=== PATIENT | female | born 1940 | race Caucasian/White ===

== ENCOUNTER 2019-08-20 15:07 | Inpatient (IN) ==
[2019-08-20] MEDS ORDERED: *HR* FentaNYL (PF) 100 MCG/2 ML VIAL IVP ONE (15:20)
[2019-08-20] MEDS ORDERED: cefTRIAXone 1,000 MG in Water for inj. (sterile) 10 ML IVP ONE (15:48)
[2019-08-20 16:00] LABS: Basophils % 0.2 %; Hemoglobin 11.6 g/dL (11.5-15.4); Mean Platelet Volume 10.6 fL (9.4-12.4); Red Cell Distribution Width 15.9 % (11.5-14.5)
[2019-08-20 16:04] LABS: Basophils # 0.1 K/mcL (0.0-0.2); Eosinophils # 0.1 K/mcL (0.0-0.6); Eosinophils % 0.4 %; Hematocrit 37.3 % (35.3-44.9); Lymphocytes # 0.6 K/mcL (0.6-4.6); Lymphocytes % 2.3 %; Mean Corpuscular HGB Conc 31.1 g/dL (31.6-35.5); Mean Corpuscular Hemoglobin 30.5 pg (28.0-33.3); Mean Corpuscular Volume 98.2 fL (83.0-100.0); Monocytes # 1.1 K/mcL (0.0-1.3); Platelet Count 217 K/mcL (140-400); Segmented Neutrophils % 92.1 %; White Blood Count 26.3 K/mcL (4.3-11.1)
[2019-08-20 16:06] LABS: Neutrophils # 24.2 K/mcL (1.6-8.9)
[2019-08-20 16:20] LABS: Albumin 3.6 g/dL (3.5-5.7); Albumin/Globulin Ratio 1.4 (1.1-2.2); Bilirubin,Direct 0.2 mg/dL (0.0-0.2); Bilirubin,Indirect 0.6 mg/dL (0.0-1.0); Bilirubin,Total 0.8 mg/dL (0.3-1.0); Calcium 9.2 mg/dL (8.6-10.3); Globulin 2.5 g/dL (2.4-3.5); Potassium 4.7 mEq/L (3.5-5.1); Total Protein 6.1 g/dL (6.4-8.9)
[2019-08-20 16:23] LABS: INR 2.3; Prothrombin Time 26.1 Seconds (9.4-12.1)
[2019-08-20 16:33] LABS: Platelet Estimate Normal (Normal)
[2019-08-20 16:43] LABS: Bacteria,Urine Moderate per hpf (None-Few); Bilirubin,Urine Negative (Negative); Blood,Urine Small (Negative); Clarity,Urine Turbid (Clear); Color,Urine Yellow (Yellow); Glucose,Urine (UA) Normal (Normal); Hyaline Casts,Urine Few per lpf (None Seen); Ketones,Urine Negative (Negative); Leukocyte Esterase,Urine Large (Negative); Mucus,Urine Few per lpf (None-Few); Nitrite,Urine Negative (Negative); Protein,Urine 30 mg/dL (Neg-Trace); RBC,Urine 0-3 per hpf (0-3); Specific Gravity,Urine 1.018 (1.010-1.025); Squamous Epithelial Cell,Urine Few per hpf (None-Few); Urobilinogen,Urine Normal (Normal); WBC,Urine 50-100 per hpf (0-3)
[2019-08-20] MEDS ORDERED: Naloxone 0.4 MG/ML INJ IVP PRN (17:44)
[2019-08-20] MEDS ORDERED: Ondansetron 4 MG/2 ML VIAL IVP PRN (17:44)
[2019-08-20] MEDS ORDERED: *HR* Dextrose 50 % in Water (Vial) 50 ML VIAL IVP PRN (17:46)
[2019-08-20] MEDS ORDERED: D5% in Water 1,000 ML IVC PRN (17:46)
[2019-08-20] MEDS ORDERED: Dextrose Gel 15 GM/37.5 ML TUBE PO PRN ×2 (17:46)
[2019-08-20] MEDS: Budesonide/Formoterol 80/4.5 1 PUFF INH IH SCH (19:49)
[2019-08-20] MEDS: Cefepime HCl 2,000 MG in 0.9 % Sodium Chloride Mini Bag 100 ML IVPB SCH (20:24)
[2019-08-20] MEDS: 0.9 % Sodium Chloride 1,000 ML IVC SCH ×3 (20:24→23:16)
[2019-08-20] MEDS: Famotidine 20 MG TABLET PO SCH (20:25)
[2019-08-20] MEDS: *HR* HYDROcodone/Acet 5/325 mg TABLET PO PRN (23:16)
[2019-08-20] MEDS: Insulin DETEMIR 100 UNIT/ML X5UNITS SQ SCH (23:16)
[2019-08-21] MEDS: 0.9 % Sodium Chloride 1,000 ML IVC SCH ×4 (00:55→11:52)
[2019-08-21 04:17] LABS: Hematocrit 32.7 % (35.3-44.9); Hemoglobin 10.1 g/dL (11.5-15.4); Mean Corpuscular HGB Conc 30.9 g/dL (31.6-35.5); Mean Corpuscular Hemoglobin 29.8 pg (28.0-33.3); Mean Corpuscular Volume 96.5 fL (83.0-100.0); Mean Platelet Volume 10.5 fL (9.4-12.4); Platelet Count 174 K/mcL (140-400); Red Blood Count 3.39 M/mcL (3.82-4.97); Red Cell Distribution Width 15.9 % (11.5-14.5); White Blood Count 18.5 K/mcL (4.3-11.1)
[2019-08-21 04:20] LABS: INR 2.5
[2019-08-21 04:36] LABS: Potassium 4.4 mEq/L (3.5-5.1)
[2019-08-21 05:19] LABS: Lymphocytes # 1.5 K/mcL (0.6-4.6); Monocytes # 0.4 K/mcL (0.0-1.3); Neutrophils # 16.7 K/mcL (1.6-8.9); Platelet Estimate Normal (Normal)
[2019-08-21] MEDS: Budesonide/Formoterol 80/4.5 1 PUFF INH IH SCH ×2 (07:14→21:45)
[2019-08-21] MEDS: Cefepime HCl 2,000 MG in 0.9 % Sodium Chloride Mini Bag 100 ML IVPB SCH ×2 (08:53→22:15)
[2019-08-21] MEDS: Famotidine 20 MG TABLET PO SCH ×2 (08:54→22:13)
[2019-08-21] MEDS: Cholecalciferol (D-3) 1,000 UNIT (25MCG) TABLET PO SCH (08:55)
[2019-08-21] MEDS: DilTIAZem CD (24hr) 240 MG CAP.ER.24H PO SCH (08:55)
[2019-08-21] MEDS ORDERED: cefTRIAXone 1,000 MG in Water for inj. (sterile) 10 ML IVP SCH (09:00)
[2019-08-21] MEDS ORDERED: Furosemide 20 MG/2 ML VIAL IVP ONE (11:57)
[2019-08-21] MEDS: Insulin LISPRO 300 UNITS/3 ML VIAL SQ SCH ×3 (12:49→21:48)
[2019-08-21] MEDS: Vancomycin 1,750 MG/517.5 ML IV.SOLN IVPB SCH (13:54)
[2019-08-21] MEDS ORDERED: Perflutren Lipid Microsphere 1.3 ML in 0.9 % Sodium Chloride 8.7 ML IVP PRN (15:45)
[2019-08-21] MEDS: *HR* HYDROcodone/Acet 5/325 mg TABLET PO PRN (22:14)
[2019-08-21] MEDS: Insulin DETEMIR 100 UNIT/ML X5UNITS SQ SCH (22:15)
[2019-08-21] MEDS: *HR* Heparin 5,000 UNIT/ML VIAL SQ SCH (22:15)
[2019-08-21] MEDS: *HR* Metoprolol 5 MG/5 ML VIAL IVP PRN (22:26)
[2019-08-22 04:17] LABS: Basophils # 0.1 K/mcL (0.0-0.2); Basophils % 0.3 %; Eosinophils # 0.2 K/mcL (0.0-0.6); Eosinophils % 1.2 %; Hematocrit 33.4 % (35.3-44.9); Hemoglobin 10.1 g/dL (11.5-15.4); Lymphocytes # 1.4 K/mcL (0.6-4.6); Lymphocytes % 8.5 %; Mean Corpuscular HGB Conc 30.2 g/dL (31.6-35.5); Mean Corpuscular Hemoglobin 30.1 pg (28.0-33.3); Mean Corpuscular Volume 99.7 fL (83.0-100.0); Mean Platelet Volume 11.2 fL (9.4-12.4); Monocytes % 5.9 %; Neutrophils # 13.9 K/mcL (1.6-8.9); Platelet Count 165 K/mcL (140-400); Red Blood Count 3.35 M/mcL (3.82-4.97); Red Cell Distribution Width 15.9 % (11.5-14.5); Segmented Neutrophils % 83.1 %; White Blood Count 16.7 K/mcL (4.3-11.1)
[2019-08-22 04:33] LABS: Calcium 7.8 mg/dL (8.6-10.3); Magnesium 1.5 mg/dL (1.6-2.6); Phosphorous 2.8 mg/dL (2.7-4.5); Potassium 4.4 mEq/L (3.5-5.1)
[2019-08-22] MEDS: *HR* HYDROcodone/Acet 5/325 mg TABLET PO PRN (05:10)
[2019-08-22] MEDS: *HR* Heparin 5,000 UNIT/ML VIAL SQ SCH ×3 (05:10→22:04)
[2019-08-22] MEDS: Budesonide/Formoterol 80/4.5 1 PUFF INH IH SCH ×2 (07:43→22:22)
[2019-08-22 08:44] LABS: Creatine Kinase 605 Units/L (30-223)
[2019-08-22] MEDS: Insulin LISPRO 300 UNITS/3 ML VIAL SQ SCH ×4 (08:55→21:48)
[2019-08-22] MEDS: Famotidine 20 MG TABLET PO SCH ×2 (09:05→22:03)
[2019-08-22] MEDS: Cefepime HCl 2,000 MG in 0.9 % Sodium Chloride Mini Bag 100 ML IVPB SCH ×2 (09:06→22:04)
[2019-08-22] MEDS: DilTIAZem CD (24hr) 240 MG CAP.ER.24H PO SCH (09:06)
[2019-08-22] MEDS: Cholecalciferol (D-3) 1,000 UNIT (25MCG) TABLET PO SCH (09:06)
[2019-08-22 10:34] LABS: C-Reactive Protein 279 mg/L (Less than 10)
[2019-08-22] MEDS: *HR* Metoprolol 5 MG/5 ML VIAL IVP PRN (11:08)
[2019-08-22] MEDS: Vancomycin 1,750 MG/517.5 ML IV.SOLN IVPB SCH (12:30)
[2019-08-22 15:01] LABS: INR 1.8; Prothrombin Time 20.5 Seconds (9.4-12.1)
[2019-08-22] MEDS: Insulin DETEMIR 100 UNIT/ML X5UNITS SQ SCH (22:04)
[2019-08-23 03:57] LABS: Basophils # 0.1 K/mcL (0.0-0.2); Basophils % 0.6 %; Eosinophils # 0.4 K/mcL (0.0-0.6); Eosinophils % 2.8 %; Hematocrit 38.8 % (35.3-44.9); Immature Granulocytes % 0.7 % (0-4); Lymphocytes # 1.3 K/mcL (0.6-4.6); Lymphocytes % 9.6 %; Mean Corpuscular HGB Conc 28.4 g/dL (31.6-35.5); Mean Corpuscular Hemoglobin 29.3 pg (28.0-33.3); Mean Corpuscular Volume 103.2 fL (83.0-100.0); Mean Platelet Volume 11.3 fL (9.4-12.4); Monocytes # 1.2 K/mcL (0.0-1.3); Monocytes % 8.9 %; Neutrophils # 10.5 K/mcL (1.6-8.9); Platelet Count 143 K/mcL (140-400); Red Blood Count 3.76 M/mcL (3.82-4.97); Red Cell Distribution Width 15.9 % (11.5-14.5); Segmented Neutrophils % 77.4 %; White Blood Count 13.5 K/mcL (4.3-11.1)
[2019-08-23 04:04] LABS: BUN/Creatinine Ratio 35 (6-26); Blood Urea Nitrogen 31 mg/dL (8-23); Carbon Dioxide 12 mEq/L (23-29); Chloride 110 mEq/L (98-107); Glucose 89 mg/dL (70-105); Osmolality,Calculated 282 (280-300); Phosphorous 2.7 mg/dL (2.7-4.5); Potassium 5.2 mEq/L (3.5-5.1); Sodium 133 mEq/L (136-145); eGFR For African Americans > 60 (> 60); eGFR For Non-African Americans > 60 (> 60)
[2019-08-23 04:25] LABS: Platelet Estimate Normal (Normal)
[2019-08-23] MEDS: *HR* Heparin 5,000 UNIT/ML VIAL SQ SCH ×3 (05:47→20:38)
[2019-08-23] MEDS: Budesonide/Formoterol 80/4.5 1 PUFF INH IH SCH ×2 (07:39→20:21)
[2019-08-23] MEDS: Insulin LISPRO 300 UNITS/3 ML VIAL SQ SCH ×4 (07:58→20:29)
[2019-08-23] MEDS: DilTIAZem CD (24hr) 240 MG CAP.ER.24H PO SCH (08:11)
[2019-08-23] MEDS: Famotidine 20 MG TABLET PO SCH ×2 (08:11→20:38)
[2019-08-23] MEDS: Cholecalciferol (D-3) 1,000 UNIT (25MCG) TABLET PO SCH (08:11)
[2019-08-23] MEDS: Cefepime HCl 2,000 MG in 0.9 % Sodium Chloride Mini Bag 100 ML IVPB SCH (08:12)
[2019-08-23] MEDS: 0.9 % Sodium Chloride 1,000 ML IVC SCH ×2 (09:02→20:39)
[2019-08-23] MEDS: Vancomycin 1,750 MG/517.5 ML IV.SOLN IVPB SCH (12:17)
[2019-08-23] MEDS: Ertapenem 1,000 MG in 0.9 % Sodium Chloride Mini Bag 100 ML IVPB SCH (18:08)
[2019-08-23 20:25] LABS: Glucose,Synovial Fluid 113 mg/dL (No Ref Range); LDH,Synovial Fluid 993 Units/L (No Ref Range)
[2019-08-23] MEDS: *HR* Metoprolol 5 MG/5 ML VIAL IVP PRN (20:38)
[2019-08-23] MEDS: Nystatin POWDER 30 GM BOTTLE TP SCH (20:39)
[2019-08-23] MEDS: Insulin DETEMIR 100 UNIT/ML X5UNITS SQ SCH (20:42)
[2019-08-24] MEDS: *HR* Heparin 5,000 UNIT/ML VIAL SQ SCH ×3 (05:39→20:37)
[2019-08-24] MEDS: Budesonide/Formoterol 80/4.5 1 PUFF INH IH SCH ×2 (07:47→20:22)
[2019-08-24] MEDS: Cholecalciferol (D-3) 1,000 UNIT (25MCG) TABLET PO SCH (07:54)
[2019-08-24] MEDS: DilTIAZem CD (24hr) 240 MG CAP.ER.24H PO SCH (08:03)
[2019-08-24] MEDS: Famotidine 20 MG TABLET PO SCH ×2 (08:03→20:35)
[2019-08-24] MEDS: Nystatin POWDER 30 GM BOTTLE TP SCH ×3 (08:16→20:36)
[2019-08-24] MEDS: Insulin LISPRO 300 UNITS/3 ML VIAL SQ SCH ×4 (08:16→20:25)
[2019-08-24] MEDS: *HR* HYDROcodone/Acet 5/325 mg TABLET PO PRN ×2 (09:13→18:39)
[2019-08-24 10:38] LABS: BUN/Creatinine Ratio 30 (6-26); Blood Urea Nitrogen 21 mg/dL (8-23); Calcium 7.8 mg/dL (8.6-10.3); Carbon Dioxide 19 mEq/L (23-29); Chloride 109 mEq/L (98-107); Glucose 179 mg/dL (70-105); Magnesium 1.6 mg/dL (1.6-2.6); Osmolality,Calculated 287 (280-300); Phosphorous 2.3 mg/dL (2.7-4.5); Potassium 3.5 mEq/L (3.5-5.1); Sodium 135 mEq/L (136-145); eGFR For African Americans > 60 (> 60); eGFR For Non-African Americans > 60 (> 60)
[2019-08-24] MEDS ORDERED: Furosemide 20 MG/2 ML VIAL IVP ONE (11:06)
[2019-08-24] MEDS: Vancomycin 1,750 MG/517.5 ML IV.SOLN IVPB SCH (11:30)
[2019-08-24 14:24] LABS: Basophils % 0.7 %; Nucleated Red Blood Cells 0.1 /100 WBC (0)
[2019-08-24 14:26] LABS: Basophils # 0.1 K/mcL (0.0-0.2); Eosinophils # 0.3 K/mcL (0.0-0.6); Eosinophils % 1.7 %; Hematocrit 34.3 % (35.3-44.9); Hemoglobin 10.8 g/dL (11.5-15.4); Immature Granulocytes % 4.1 % (0-4); Immature Platelets 4.3 % (1.1-6.1); Lymphocytes # 1.6 K/mcL (0.6-4.6); Lymphocytes % 9.2 %; Mean Corpuscular HGB Conc 31.5 g/dL (31.6-35.5); Mean Corpuscular Hemoglobin 29.3 pg (28.0-33.3); Mean Platelet Volume 11.4 fL (9.4-12.4); Monocytes # 1.8 K/mcL (0.0-1.3); Monocytes % 10.2 %; Neutrophils # 12.9 K/mcL (1.6-8.9); Platelet Count 173 K/mcL (140-400); Red Blood Count 3.69 M/mcL (3.82-4.97); Red Cell Distribution Width 15.5 % (11.5-14.5); Segmented Neutrophils % 74.1 %; White Blood Count 17.4 K/mcL (4.3-11.1)
[2019-08-24 14:31] LABS: Platelet Estimate Normal (Normal)
[2019-08-24] MEDS ORDERED: Colchicine 0.6 MG TABLET PO ONE (15:32)
[2019-08-24] MEDS: Ertapenem 1,000 MG in 0.9 % Sodium Chloride Mini Bag 100 ML IVPB SCH (15:57)
[2019-08-24] MEDS: Metoprolol XL (24 HR) Succ 25 MG TAB.ER.24H PO SCH ×2 (15:59→20:37)
[2019-08-24] MEDS: Colchicine 0.6 MG TABLET PO SCH (20:34)
[2019-08-24] MEDS: Insulin DETEMIR 100 UNIT/ML X5UNITS SQ SCH (20:35)
[2019-08-25 03:56] LABS: Hematocrit 33.1 % (35.3-44.9); Hemoglobin 10.3 g/dL (11.5-15.4); Mean Corpuscular HGB Conc 31.1 g/dL (31.6-35.5); Mean Corpuscular Hemoglobin 29.3 pg (28.0-33.3); Mean Corpuscular Volume 94.3 fL (83.0-100.0); Mean Platelet Volume 10.6 fL (9.4-12.4); Nucleated Red Blood Cells 0.1 /100 WBC (0); Platelet Count 240 K/mcL (140-400); Red Blood Count 3.51 M/mcL (3.82-4.97); Red Cell Distribution Width 15.7 % (11.5-14.5); White Blood Count 17.8 K/mcL (4.3-11.1)
[2019-08-25 04:17] LABS: BUN/Creatinine Ratio 28 (6-26); Blood Urea Nitrogen 19 mg/dL (8-23); Calcium 8.2 mg/dL (8.6-10.3); Carbon Dioxide 22 mEq/L (23-29); Chloride 105 mEq/L (98-107); Glucose 130 mg/dL (70-105); Magnesium 1.5 mg/dL (1.6-2.6); Osmolality,Calculated 284 (280-300); Potassium 3.5 mEq/L (3.5-5.1); Sodium 135 mEq/L (136-145); eGFR For African Americans > 60 (> 60); eGFR For Non-African Americans > 60 (> 60)
[2019-08-25 05:02] LABS: Basophils # 0.4 K/mcL (0.0-0.2); Eosinophils # 0.7 K/mcL (0.0-0.6); Lymphocytes # 1.8 K/mcL (0.6-4.6); Monocytes # 2.1 K/mcL (0.0-1.3); Neutrophils # 12.8 K/mcL (1.6-8.9)
[2019-08-25 05:03] LABS: Platelet Estimate Normal (Normal); Smudge Cells Present (Not Present)
[2019-08-25] MEDS: *HR* Heparin 5,000 UNIT/ML VIAL SQ SCH ×3 (05:18→20:45)
[2019-08-25] MEDS: *HR* HYDROcodone/Acet 5/325 mg TABLET PO PRN ×2 (05:23→18:36)
[2019-08-25] MEDS: Colchicine 0.6 MG TABLET PO SCH ×2 (08:50→20:45)
[2019-08-25] MEDS: Cholecalciferol (D-3) 1,000 UNIT (25MCG) TABLET PO SCH (08:50)
[2019-08-25] MEDS: DilTIAZem CD (24hr) 240 MG CAP.ER.24H PO SCH (08:50)
[2019-08-25] MEDS: Metoprolol XL (24 HR) Succ 25 MG TAB.ER.24H PO SCH ×2 (08:50→20:45)
[2019-08-25] MEDS: Nystatin POWDER 30 GM BOTTLE TP SCH ×3 (08:51→20:45)
[2019-08-25] MEDS: Famotidine 20 MG TABLET PO SCH ×2 (08:51→20:45)
[2019-08-25] MEDS: Insulin LISPRO 300 UNITS/3 ML VIAL SQ SCH ×4 (08:54→20:41)
[2019-08-25] MEDS: Furosemide 20 MG/2 ML VIAL IVP SCH ×2 (09:49→20:45)
[2019-08-25] MEDS: Budesonide/Formoterol 80/4.5 1 PUFF INH IH SCH ×2 (10:32→20:14)
[2019-08-25] MEDS: Vancomycin 1,750 MG/517.5 ML IV.SOLN IVPB SCH (12:32)
[2019-08-25] MEDS: Ertapenem 1,000 MG in 0.9 % Sodium Chloride Mini Bag 100 ML IVPB SCH (16:28)
[2019-08-25] MEDS: Insulin DETEMIR 100 UNIT/ML X5UNITS SQ SCH (20:45)
[2019-08-26 01:13] LABS: Hematocrit 34.3 % (35.3-44.9); Hemoglobin 10.8 g/dL (11.5-15.4); Mean Corpuscular HGB Conc 31.5 g/dL (31.6-35.5); Mean Corpuscular Volume 95.3 fL (83.0-100.0); Mean Platelet Volume 10.2 fL (9.4-12.4); Nucleated Red Blood Cells 0.2 /100 WBC (0); Platelet Count 280 K/mcL (140-400); Red Cell Distribution Width 15.5 % (11.5-14.5); White Blood Count 17.2 K/mcL (4.3-11.1)
[2019-08-26 01:34] LABS: BUN/Creatinine Ratio 38 (6-26); Blood Urea Nitrogen 29 mg/dL (8-23); Calcium 8.4 mg/dL (8.6-10.3); Carbon Dioxide 26 mEq/L (23-29); Chloride 102 mEq/L (98-107); Glucose 145 mg/dL (70-105); Magnesium 1.5 mg/dL (1.6-2.6); Osmolality,Calculated 290 (280-300); Phosphorous 2.3 mg/dL (2.7-4.5); Potassium 3.8 mEq/L (3.5-5.1); Sodium 136 mEq/L (136-145); eGFR For African Americans > 60 (> 60); eGFR For Non-African Americans > 60 (> 60)
[2019-08-26 01:52] LABS: Basophils # 0.3 K/mcL (0.0-0.2); Eosinophils # 0.3 K/mcL (0.0-0.6); Lymphocytes # 5.9 K/mcL (0.6-4.6); Monocytes # 0.7 K/mcL (0.0-1.3); Neutrophils # 9.6 K/mcL (1.6-8.9); Platelet Estimate Normal (Normal)
[2019-08-26] MEDS: *HR* HYDROcodone/Acet 5/325 mg TABLET PO PRN ×2 (03:56→11:35)
[2019-08-26] MEDS: *HR* Heparin 5,000 UNIT/ML VIAL SQ SCH ×3 (05:39→22:02)
[2019-08-26] MEDS: Budesonide/Formoterol 80/4.5 1 PUFF INH IH SCH ×2 (07:40→19:55)
[2019-08-26] MEDS: Colchicine 0.6 MG TABLET PO SCH ×2 (08:10→22:03)
[2019-08-26] MEDS: Furosemide 20 MG/2 ML VIAL IVP SCH ×2 (08:10→22:24)
[2019-08-26] MEDS: Insulin LISPRO 300 UNITS/3 ML VIAL SQ SCH ×4 (08:10→22:03)
[2019-08-26] MEDS: Famotidine 20 MG TABLET PO SCH ×2 (08:10→22:24)
[2019-08-26] MEDS: DilTIAZem CD (24hr) 240 MG CAP.ER.24H PO SCH (08:11)
[2019-08-26] MEDS: Metoprolol XL (24 HR) Succ 25 MG TAB.ER.24H PO SCH ×2 (08:11→22:24)
[2019-08-26] MEDS: Nystatin POWDER 30 GM BOTTLE TP SCH ×2 (08:11→15:05)
[2019-08-26] MEDS: Cholecalciferol (D-3) 1,000 UNIT (25MCG) TABLET PO SCH (08:12)
[2019-08-26] MEDS: Vancomycin 1,750 MG/517.5 ML IV.SOLN IVPB SCH (11:35)
[2019-08-26] MEDS ORDERED: Magnesium Sulfate 1 GM/102 ML PIGGYBACK IVPB ONE (15:07)
[2019-08-26] MEDS: Ertapenem 1,000 MG in 0.9 % Sodium Chloride Mini Bag 100 ML IVPB SCH (16:27)
[2019-08-26] MEDS: Insulin DETEMIR 100 UNIT/ML X5UNITS SQ SCH (22:03)
[2019-08-26] MEDS: *HR* Metoprolol 5 MG/5 ML VIAL IVP PRN (22:24)
[2019-08-27 04:36] LABS: Hematocrit 36.4 % (35.3-44.9); Hemoglobin 11.2 g/dL (11.5-15.4); Mean Corpuscular HGB Conc 30.8 g/dL (31.6-35.5); Mean Corpuscular Hemoglobin 29.4 pg (28.0-33.3); Mean Corpuscular Volume 95.5 fL (83.0-100.0); Mean Platelet Volume 10.1 fL (9.4-12.4); Nucleated Red Blood Cells 0.1 /100 WBC (0); Platelet Count 351 K/mcL (140-400); Red Blood Count 3.81 M/mcL (3.82-4.97); White Blood Count 16.3 K/mcL (4.3-11.1)
[2019-08-27 04:56] LABS: BUN/Creatinine Ratio 40 (6-26); Blood Urea Nitrogen 33 mg/dL (8-23); Calcium 8.3 mg/dL (8.6-10.3); Carbon Dioxide 30 mEq/L (23-29); Chloride 99 mEq/L (98-107); Glucose 122 mg/dL (70-105); Magnesium 1.7 mg/dL (1.6-2.6); Osmolality,Calculated 289 (280-300); Phosphorous 3.5 mg/dL (2.7-4.5); Sodium 135 mEq/L (136-145); eGFR For African Americans > 60 (> 60); eGFR For Non-African Americans > 60 (> 60)
[2019-08-27 05:03] LABS: Eosinophils # 0.3 K/mcL (0.0-0.6); Lymphocytes # 1.6 K/mcL (0.6-4.6); Monocytes # 0.7 K/mcL (0.0-1.3); Neutrophils # 12.7 K/mcL (1.6-8.9)
[2019-08-27] MEDS: Nystatin POWDER 30 GM BOTTLE TP SCH ×4 (05:03→22:31)
[2019-08-27] MEDS: *HR* Heparin 5,000 UNIT/ML VIAL SQ SCH ×3 (05:03→22:30)
[2019-08-27] MEDS: *HR* HYDROcodone/Acet 5/325 mg TABLET PO PRN ×3 (05:03→22:27)
[2019-08-27 05:04] LABS: Platelet Estimate Normal (Normal); Smudge Cells Present (Not Present)
[2019-08-27] MEDS: Budesonide/Formoterol 80/4.5 1 PUFF INH IH SCH ×2 (07:43→20:32)
[2019-08-27] MEDS: Insulin LISPRO 300 UNITS/3 ML VIAL SQ SCH ×3 (08:46→17:24)
[2019-08-27] MEDS: Metoprolol XL (24 HR) Succ 25 MG TAB.ER.24H PO SCH ×2 (08:59→22:30)
[2019-08-27] MEDS: DilTIAZem CD (24hr) 240 MG CAP.ER.24H PO SCH (08:59)
[2019-08-27] MEDS: Colchicine 0.6 MG TABLET PO SCH ×2 (08:59→22:31)
[2019-08-27] MEDS: Furosemide 20 MG/2 ML VIAL IVP SCH ×2 (08:59→22:31)
[2019-08-27] MEDS: Famotidine 20 MG TABLET PO SCH ×2 (08:59→22:31)
[2019-08-27] MEDS: Cholecalciferol (D-3) 1,000 UNIT (25MCG) TABLET PO SCH (08:59)
[2019-08-27] MEDS: *HR* Metoprolol 5 MG/5 ML VIAL IVP PRN (11:28)
[2019-08-27] MEDS: Vancomycin 1,750 MG/517.5 ML IV.SOLN IVPB SCH (11:32)
[2019-08-27] MEDS ORDERED: Aminoglycoside Consult 1 EACH MC ONE (13:52)
[2019-08-27] MEDS: Ertapenem 1,000 MG in 0.9 % Sodium Chloride Mini Bag 100 ML IVPB SCH (17:24)
[2019-08-27] MEDS: Insulin DETEMIR 100 UNIT/ML X5UNITS SQ SCH (22:30)
[2019-08-27] MEDS: Doxycycline 100 MG CAPSULE PO SCH (22:31)
[2019-08-28] MEDS: Insulin LISPRO 300 UNITS/3 ML VIAL SQ SCH ×5 (02:39→20:58)
[2019-08-28] MEDS: *HR* Metoprolol 5 MG/5 ML VIAL IVP PRN ×3 (02:47→17:29)
[2019-08-28] MEDS ORDERED: 0.9 % Sodium Chloride 250 ML IVC ONE (04:01)
[2019-08-28 04:53] LABS: BUN/Creatinine Ratio 46 (6-26); Blood Urea Nitrogen 38 mg/dL (8-23); Calcium 8.8 mg/dL (8.6-10.3); Carbon Dioxide 25 mEq/L (23-29); Chloride 100 mEq/L (98-107); Glucose 118 mg/dL (70-105); Magnesium 1.6 mg/dL (1.6-2.6); Osmolality,Calculated 292 (280-300); Potassium 4.2 mEq/L (3.5-5.1); Sodium 136 mEq/L (136-145); eGFR For African Americans > 60 (> 60); eGFR For Non-African Americans > 60 (> 60)
[2019-08-28] MEDS: *HR* Heparin 5,000 UNIT/ML VIAL SQ SCH ×3 (05:18→21:05)
[2019-08-28] MEDS: Budesonide/Formoterol 80/4.5 1 PUFF INH IH SCH ×2 (08:01→22:20)
[2019-08-28] MEDS: Doxycycline 100 MG CAPSULE PO SCH ×2 (08:08→21:04)
[2019-08-28] MEDS: Metoprolol XL (24 HR) Succ 25 MG TAB.ER.24H PO SCH ×3 (08:08→21:04)
[2019-08-28] MEDS: DilTIAZem CD (24hr) 240 MG CAP.ER.24H PO SCH (08:08)
[2019-08-28] MEDS: Colchicine 0.6 MG TABLET PO SCH ×2 (08:08→21:04)
[2019-08-28] MEDS: Cholecalciferol (D-3) 1,000 UNIT (25MCG) TABLET PO SCH (08:08)
[2019-08-28] MEDS: Famotidine 20 MG TABLET PO SCH ×2 (08:08→21:05)
[2019-08-28] MEDS: Furosemide 20 MG/2 ML VIAL IVP SCH ×2 (08:08→21:04)
[2019-08-28] MEDS: Nystatin POWDER 30 GM BOTTLE TP SCH ×3 (08:09→21:03)
[2019-08-28] MEDS: *HR* HYDROcodone/Acet 5/325 mg TABLET PO PRN (08:22)
[2019-08-28] MEDS ORDERED: Isovue-370 500 ML BOTTLE IVP ONE (12:20)
[2019-08-28] MEDS ORDERED: *HR* Metoprolol 5 MG/5 ML VIAL IVP ONE (12:42)
[2019-08-28] MEDS ORDERED: Magnesium Sulfate 1 GM/102 ML PIGGYBACK IVPB ONE (13:54)
[2019-08-28 14:10] LABS: Uric Acid 7.6 mg/dL (2.3-7.6)
[2019-08-28] MEDS: Ertapenem 1,000 MG in 0.9 % Sodium Chloride Mini Bag 100 ML IVPB SCH (17:04)
[2019-08-28] MEDS: Insulin DETEMIR 100 UNIT/ML X5UNITS SQ SCH (21:04)
[2019-08-29] MEDS: *HR* Metoprolol 5 MG/5 ML VIAL IVP PRN (02:52)
[2019-08-29 03:13] LABS: Basophils # 0.1 K/mcL (0.0-0.2); Basophils % 0.8 %; Eosinophils # 0.3 K/mcL (0.0-0.6); Eosinophils % 1.8 %; Hematocrit 35.5 % (35.3-44.9); Hemoglobin 11.2 g/dL (11.5-15.4); Immature Granulocytes % 3.2 % (0-4); Lymphocytes # 2.6 K/mcL (0.6-4.6); Lymphocytes % 14.7 %; Mean Corpuscular HGB Conc 31.5 g/dL (31.6-35.5); Mean Corpuscular Hemoglobin 29.6 pg (28.0-33.3); Mean Corpuscular Volume 93.9 fL (83.0-100.0); Monocytes # 1.6 K/mcL (0.0-1.3); Monocytes % 9.1 %; Neutrophils # 12.2 K/mcL (1.6-8.9); Nucleated Red Blood Cells 0.1 /100 WBC (0); Platelet Count 391 K/mcL (140-400); Red Blood Count 3.78 M/mcL (3.82-4.97); Red Cell Distribution Width 15.9 % (11.5-14.5); Segmented Neutrophils % 70.4 %; White Blood Count 17.3 K/mcL (4.3-11.1)
[2019-08-29 03:32] LABS: BUN/Creatinine Ratio 46 (6-26); Blood Urea Nitrogen 38 mg/dL (8-23); C-Reactive Protein 139 mg/L (Less than 10); Calcium 8.7 mg/dL (8.6-10.3); Carbon Dioxide 27 mEq/L (23-29); Chloride 97 mEq/L (98-107); Glucose 89 mg/dL (70-105); Osmolality,Calculated 289 (280-300); Potassium 4.1 mEq/L (3.5-5.1); Sodium 135 mEq/L (136-145); eGFR For African Americans > 60 (> 60); eGFR For Non-African Americans > 60 (> 60)
[2019-08-29] MEDS: *HR* Heparin 5,000 UNIT/ML VIAL SQ SCH ×3 (05:55→21:06)
[2019-08-29] MEDS: Insulin LISPRO 300 UNITS/3 ML VIAL SQ SCH ×4 (08:47→21:08)
[2019-08-29] MEDS: Metoprolol XL (24 HR) Succ 25 MG TAB.ER.24H PO SCH ×3 (08:54→21:08)
[2019-08-29] MEDS: Doxycycline 100 MG CAPSULE PO SCH ×2 (08:54→21:07)
[2019-08-29] MEDS: Cholecalciferol (D-3) 1,000 UNIT (25MCG) TABLET PO SCH (08:55)
[2019-08-29] MEDS: DilTIAZem 50 MG/50 ML IV.SOLN IVC SCH ×5 (08:55→22:27)
[2019-08-29] MEDS: Famotidine 20 MG TABLET PO SCH ×2 (08:55→21:07)
[2019-08-29] MEDS: Colchicine 0.6 MG TABLET PO SCH ×2 (08:56→21:07)
[2019-08-29] MEDS: Nystatin POWDER 30 GM BOTTLE TP SCH ×3 (08:56→21:06)
[2019-08-29] MEDS: Furosemide 20 MG/2 ML VIAL IVP SCH (08:59)
[2019-08-29] MEDS: Budesonide/Formoterol 80/4.5 1 PUFF INH IH SCH ×2 (09:16→22:11)
[2019-08-29] MEDS ORDERED: 0.9 % Sodium Chloride 250 ML ONE (09:24)
[2019-08-29] MEDS: Ertapenem 1,000 MG in 0.9 % Sodium Chloride Mini Bag 100 ML IVPB SCH (16:19)
[2019-08-29] MEDS: Acetaminophen 325 MG TABLET PO PRN (21:06)
[2019-08-29] MEDS: Insulin DETEMIR 100 UNIT/ML X5UNITS SQ SCH (21:10)
[2019-08-30] MEDS: DilTIAZem 50 MG/50 ML IV.SOLN IVC SCH (01:54)
[2019-08-30] MEDS: *HR* Metoprolol 5 MG/5 ML VIAL IVP PRN (03:21)
[2019-08-30] MEDS: *HR* Heparin 5,000 UNIT/ML VIAL SQ SCH ×3 (05:09→20:05)
[2019-08-30 05:17] LABS: Basophils # 0.2 K/mcL (0.0-0.2); Basophils % 0.8 %; Eosinophils # 0.3 K/mcL (0.0-0.6); Eosinophils % 1.6 %; Hematocrit 38.8 % (35.3-44.9); Immature Granulocytes % 1.7 % (0-4); Lymphocytes # 2.7 K/mcL (0.6-4.6); Lymphocytes % 14.4 %; Mean Corpuscular HGB Conc 30.9 g/dL (31.6-35.5); Mean Corpuscular Hemoglobin 29.6 pg (28.0-33.3); Mean Corpuscular Volume 95.8 fL (83.0-100.0); Mean Platelet Volume 10.2 fL (9.4-12.4); Monocytes # 1.8 K/mcL (0.0-1.3); Monocytes % 9.7 %; Neutrophils # 13.3 K/mcL (1.6-8.9); Platelet Count 421 K/mcL (140-400); Red Blood Count 4.05 M/mcL (3.82-4.97); Red Cell Distribution Width 15.9 % (11.5-14.5); Segmented Neutrophils % 71.8 %; White Blood Count 18.5 K/mcL (4.3-11.1)
[2019-08-30 05:35] LABS: BUN/Creatinine Ratio 47 (6-26); Blood Urea Nitrogen 42 mg/dL (8-23); Calcium 9.3 mg/dL (8.6-10.3); Carbon Dioxide 27 mEq/L (23-29); Chloride 98 mEq/L (98-107); Glucose 102 mg/dL (70-105); Osmolality,Calculated 293 (280-300); Potassium 4.1 mEq/L (3.5-5.1); Sodium 136 mEq/L (136-145); eGFR For African Americans > 60 (> 60); eGFR For Non-African Americans > 60 (> 60)
[2019-08-30] MEDS: Budesonide/Formoterol 80/4.5 1 PUFF INH IH SCH ×2 (07:15→20:52)
[2019-08-30] MEDS: Insulin LISPRO 300 UNITS/3 ML VIAL SQ SCH ×4 (07:41→19:57)
[2019-08-30] MEDS: Doxycycline 100 MG CAPSULE PO SCH ×2 (07:52→20:04)
[2019-08-30] MEDS: Famotidine 20 MG TABLET PO SCH ×2 (07:53→20:03)
[2019-08-30] MEDS: Metoprolol XL (24 HR) Succ 25 MG TAB.ER.24H PO SCH ×2 (07:54→20:04)
[2019-08-30] MEDS: Colchicine 0.6 MG TABLET PO SCH (07:55)
[2019-08-30] MEDS: Nystatin POWDER 30 GM BOTTLE TP SCH ×3 (07:56→20:08)
[2019-08-30] MEDS: Cholecalciferol (D-3) 1,000 UNIT (25MCG) TABLET PO SCH (09:10)
[2019-08-30] MEDS ORDERED: DilTIAZem CD (24hr) 120 MG CAP.ER.24H PO ONE (15:20)
[2019-08-30] MEDS: Ertapenem 1,000 MG in 0.9 % Sodium Chloride Mini Bag 100 ML IVPB SCH (15:46)
[2019-08-30] MEDS: DilTIAZem CD (24hr) 120 MG CAP.ER.24H PO SCH (20:04)
[2019-08-30] MEDS: Insulin DETEMIR 100 UNIT/ML X5UNITS SQ SCH (20:06)
[2019-08-31 02:20] LABS: Hemoglobin 10.8 g/dL (11.5-15.4); Mean Corpuscular HGB Conc 30.9 g/dL (31.6-35.5); Mean Corpuscular Hemoglobin 29.7 pg (28.0-33.3); Mean Corpuscular Volume 96.2 fL (83.0-100.0); Mean Platelet Volume 10.2 fL (9.4-12.4); Platelet Count 362 K/mcL (140-400); Red Blood Count 3.64 M/mcL (3.82-4.97); Red Cell Distribution Width 15.9 % (11.5-14.5); White Blood Count 16.7 K/mcL (4.3-11.1)
[2019-08-31 02:41] LABS: BUN/Creatinine Ratio 47 (6-26); Blood Urea Nitrogen 37 mg/dL (8-23); Carbon Dioxide 27 mEq/L (23-29); Chloride 100 mEq/L (98-107); Glucose 98 mg/dL (70-105); Osmolality,Calculated 289 (280-300); Potassium 4.2 mEq/L (3.5-5.1); Sodium 135 mEq/L (136-145); Uric Acid 7.9 mg/dL (2.3-7.6); eGFR For African Americans > 60 (> 60); eGFR For Non-African Americans > 60 (> 60)
[2019-08-31] MEDS: *HR* Heparin 5,000 UNIT/ML VIAL SQ SCH ×2 (05:39→14:22)
[2019-08-31] MEDS: Doxycycline 100 MG CAPSULE PO SCH ×2 (07:37→20:37)
[2019-08-31] MEDS: Famotidine 20 MG TABLET PO SCH ×2 (07:37→20:37)
[2019-08-31] MEDS: DilTIAZem CD (24hr) 120 MG CAP.ER.24H PO SCH ×2 (07:37→20:37)
[2019-08-31] MEDS: Metoprolol XL (24 HR) Succ 25 MG TAB.ER.24H PO SCH ×2 (07:37→20:38)
[2019-08-31] MEDS: Cholecalciferol (D-3) 1,000 UNIT (25MCG) TABLET PO SCH (07:38)
[2019-08-31] MEDS: Nystatin POWDER 30 GM BOTTLE TP SCH ×3 (07:43→20:38)
[2019-08-31] MEDS: Insulin LISPRO 300 UNITS/3 ML VIAL SQ SCH ×4 (08:17→20:30)
[2019-08-31] MEDS ORDERED: *HR* Digoxin 0.5 MG/2 ML AMPUL IVP ONE (08:36)
[2019-08-31] MEDS: Budesonide/Formoterol 80/4.5 1 PUFF INH IH SCH ×2 (08:46→19:55)
[2019-08-31] MEDS: *HR* Digoxin 0.5 MG/2 ML AMPUL IVP SCH ×2 (14:23→17:55)
[2019-08-31] MEDS ORDERED: DilTIAZem CD (24hr) 120 MG CAP.ER.24H PO ONE (15:02)
[2019-08-31] MEDS ORDERED: *HR* Warfarin 5 MG TABLET PO ONE (18:00)
[2019-08-31] MEDS ORDERED: Warfarin perPT PO PRN (18:00)
[2019-08-31] MEDS: Insulin DETEMIR 100 UNIT/ML X5UNITS SQ SCH (20:37)
[2019-08-31] MEDS: *HR* HYDROcodone/Acet 5/325 mg TABLET PO PRN (20:43)
[2019-09-01 00:49] LABS: Hematocrit 33.7 % (35.3-44.9); Hemoglobin 10.3 g/dL (11.5-15.4); Mean Corpuscular HGB Conc 30.6 g/dL (31.6-35.5); Mean Corpuscular Hemoglobin 29.3 pg (28.0-33.3); Mean Platelet Volume 10.5 fL (9.4-12.4); Platelet Count 342 K/mcL (140-400); Red Blood Count 3.51 M/mcL (3.82-4.97); Red Cell Distribution Width 15.8 % (11.5-14.5); White Blood Count 13.5 K/mcL (4.3-11.1)
[2019-09-01 00:51] LABS: INR 1.2; Prothrombin Time 13.3 Seconds (9.4-12.1)
[2019-09-01 01:08] LABS: BUN/Creatinine Ratio 49 (6-26); Blood Urea Nitrogen 37 mg/dL (8-23); Calcium 8.9 mg/dL (8.6-10.3); Carbon Dioxide 24 mEq/L (23-29); Chloride 101 mEq/L (98-107); Glucose 113 mg/dL (70-105); Osmolality,Calculated 287 (280-300); Potassium 4.8 mEq/L (3.5-5.1); Sodium 134 mEq/L (136-145); eGFR For African Americans > 60 (> 60); eGFR For Non-African Americans > 60 (> 60)
[2019-09-01] MEDS: Famotidine 20 MG TABLET PO SCH ×2 (07:36→20:24)
[2019-09-01] MEDS: Cholecalciferol (D-3) 1,000 UNIT (25MCG) TABLET PO SCH (07:37)
[2019-09-01] MEDS: Doxycycline 100 MG CAPSULE PO SCH ×2 (07:37→20:23)
[2019-09-01] MEDS: Metoprolol XL (24 HR) Succ 25 MG TAB.ER.24H PO SCH ×2 (07:37→20:25)
[2019-09-01] MEDS: DilTIAZem CD (24hr) 120 MG CAP.ER.24H PO SCH ×2 (07:37→20:23)
[2019-09-01] MEDS: Nystatin POWDER 30 GM BOTTLE TP SCH ×2 (07:44→15:33)
[2019-09-01] MEDS: Insulin LISPRO 300 UNITS/3 ML VIAL SQ SCH ×4 (08:02→20:30)
[2019-09-01] MEDS: *HR* Digoxin 0.125 MG TABLET PO SCH (10:23)
[2019-09-01] MEDS: Budesonide/Formoterol 80/4.5 1 PUFF INH IH SCH ×2 (10:34→20:34)
[2019-09-01] MEDS: *HR* HYDROcodone/Acet 5/325 mg TABLET PO PRN (17:52)
[2019-09-01] MEDS ORDERED: *HR* Warfarin 5 MG TABLET PO ONE (18:00)
[2019-09-01] MEDS: Insulin DETEMIR 100 UNIT/ML X5UNITS SQ SCH (20:26)
[2019-09-02 01:06] LABS: INR 1.2; Prothrombin Time 13.6 Seconds (9.4-12.1)
[2019-09-02] MEDS: Nystatin POWDER 30 GM BOTTLE TP SCH ×4 (02:48→21:15)
[2019-09-02] MEDS: Metoprolol XL (24 HR) Succ 25 MG TAB.ER.24H PO SCH ×2 (07:28→21:15)
[2019-09-02] MEDS: Famotidine 20 MG TABLET PO SCH ×2 (07:28→21:14)
[2019-09-02] MEDS: Doxycycline 100 MG CAPSULE PO SCH ×2 (07:28→21:15)
[2019-09-02] MEDS: DilTIAZem CD (24hr) 120 MG CAP.ER.24H PO SCH ×2 (07:28→21:15)
[2019-09-02] MEDS: Cholecalciferol (D-3) 1,000 UNIT (25MCG) TABLET PO SCH (07:29)
[2019-09-02] MEDS: *HR* Digoxin 0.125 MG TABLET PO SCH (07:29)
[2019-09-02] MEDS: Insulin LISPRO 300 UNITS/3 ML VIAL SQ SCH ×4 (07:32→21:14)
[2019-09-02] MEDS: Budesonide/Formoterol 80/4.5 1 PUFF INH IH SCH ×2 (07:46→22:09)
[2019-09-02] MEDS ORDERED: *HR* Warfarin 5 MG TABLET PO ONE (18:00)
[2019-09-02] MEDS: Acetaminophen 325 MG TABLET PO PRN (18:51)
[2019-09-02] MEDS: Insulin DETEMIR 100 UNIT/ML X5UNITS SQ SCH (21:12)
[2019-09-03 01:13] LABS: INR 1.3; Prothrombin Time 15.1 Seconds (9.4-12.1)
[2019-09-03] MEDS: Acetaminophen 325 MG TABLET PO PRN ×2 (05:13→11:43)
[2019-09-03] MEDS: Insulin LISPRO 300 UNITS/3 ML VIAL SQ SCH ×2 (07:35→11:45)
[2019-09-03] MEDS: *HR* Digoxin 0.125 MG TABLET PO SCH (07:46)
[2019-09-03] MEDS: Cholecalciferol (D-3) 1,000 UNIT (25MCG) TABLET PO SCH (07:46)
[2019-09-03] MEDS: Famotidine 20 MG TABLET PO SCH (07:46)
[2019-09-03] MEDS: Metoprolol XL (24 HR) Succ 25 MG TAB.ER.24H PO SCH (07:46)
[2019-09-03] MEDS: Nystatin POWDER 30 GM BOTTLE TP SCH (07:47)
[2019-09-03] MEDS: DilTIAZem CD (24hr) 120 MG CAP.ER.24H PO SCH (07:47)
[2019-09-03] MEDS: Budesonide/Formoterol 80/4.5 1 PUFF INH IH SCH (08:13)
[2019-09-03 11:28] VITALS: BP 126/55
[2019-09-03] MEDS ORDERED: *HR* Warfarin 5 MG TABLET PO ONE (18:00)
== END 2019-09-03 13:53 | DRG 602 ==
LOC: 3ANU 15:07 → EMEROOARM 15:07 → 3ANU 18:55 → SUATTDRO 08-21 18:05 → 2NNU 08-29 15:28
PROVIDERS: ADMIT Internal Medicine; ATTEND Internal Medicine

== ENCOUNTER 2019-11-01 02:19 | Inpatient (IN) ==
[2019-11-01] MEDS ORDERED: 0.9 % Sodium Chloride 1,000 ML IVC ONE (02:24)
[2019-11-01] MEDS ORDERED: 0.9 % Sodium Chloride 500 ML IVC ONE (02:50)
[2019-11-01 03:04] LABS: Basophils # 0.1 K/mcL (0.0-0.2); Eosinophils # 0.2 K/mcL (0.0-0.6); Eosinophils % 1.9 %; Hematocrit 37.5 % (35.3-44.9); Hemoglobin 11.6 g/dL (11.5-15.4); Immature Granulocytes % 1.1 % (0-4); Lymphocytes % 19.9 %; Mean Corpuscular HGB Conc 30.9 g/dL (31.6-35.5); Mean Corpuscular Hemoglobin 28.8 pg (28.0-33.3); Mean Corpuscular Volume 93.1 fL (83.0-100.0); Mean Platelet Volume 9.9 fL (9.4-12.4); Monocytes # 0.8 K/mcL (0.0-1.3); Monocytes % 7.7 %; Neutrophils # 6.7 K/mcL (1.6-8.9); Platelet Count 307 K/mcL (140-400); Red Blood Count 4.03 M/mcL (3.82-4.97); Red Cell Distribution Width 16.1 % (11.5-14.5); Segmented Neutrophils % 68.4 %; White Blood Count 9.8 K/mcL (4.3-11.1)
[2019-11-01 03:07] LABS: INR 1.7; Prothrombin Time 18.8 Seconds (9.4-12.1)
[2019-11-01 03:25] LABS: Alanine Aminotransferase 8 Units/L (7-52); Albumin 3.2 g/dL (3.5-5.7); Albumin/Globulin Ratio 1.3 (1.1-2.2); Alkaline Phosphatase 86 Units/L (34-104); Aspartate Amino Transferase 12 Units/L (13-39); BUN/Creatinine Ratio 18 (6-26); Bilirubin,Direct 0.2 mg/dL (0.0-0.2); Bilirubin,Indirect 0.6 mg/dL (0.0-1.0); Bilirubin,Total 0.8 mg/dL (0.3-1.0); Blood Urea Nitrogen 15 mg/dL (8-23); Calcium 8.7 mg/dL (8.6-10.3); Carbon Dioxide 26 mEq/L (23-29); Chloride 94 mEq/L (98-107); Globulin 2.4 g/dL (2.4-3.5); Glucose 185 mg/dL (70-105); Osmolality,Calculated 272 (280-300); Potassium 4.5 mEq/L (3.5-5.1); Sodium 128 mEq/L (136-145); Total Protein 5.6 g/dL (6.4-8.9); Troponin I < 0.03 ng/mL (< 0.04); eGFR For African Americans > 60 (> 60); eGFR For Non-African Americans > 60 (> 60)
[2019-11-01 04:13] LABS: Bacteria,Urine Moderate per hpf (None-Few); Bilirubin,Urine Negative (Negative); Blood,Urine Small (Negative); Budding Yeast,Urine Few per hpf (None Seen); Clarity,Urine Turbid (Clear); Color,Urine Yellow (Yellow); Glucose,Urine (UA) Normal (Normal); Hyaline Casts,Urine Few per lpf (None Seen); Ketones,Urine Negative (Negative); Leukocyte Esterase,Urine Large (Negative); Nitrite,Urine Negative (Negative); Protein,Urine Trace mg/dL (Neg-Trace); Specific Gravity,Urine 1.018 (1.010-1.025); Squamous Epithelial Cell,Urine Moderate per hpf (None-Few); Transitional Epi Cells,Urine Few per hpf (None-Few); Urobilinogen,Urine Normal (Normal); WBC,Urine TNTC per hpf (0-3)
[2019-11-01 04:55] LABS: Adenovirus Not Detected (Not Detect); Bordetella Pertussis Not Detected (Not Detect); Chlamydophila pneumoniae Not Detected (Not Detect); Coronavirus 229E Not Detected (Not Detect); Coronavirus HKU1 Not Detected (Not Detect); Coronavirus NL63 Not Detected (Not Detect); Coronavirus OC43 Not Detected (Not Detect); Human Metapneumovirus Not Detected (Not Detect); Human Rhinovirus/Enterovirus Not Detected (Not Detect); Influenza A Subtype 2009 H1 Not Detected (Not Detect); Influenza B Not Detected (Not Detect); Mycoplasma pneumoniae Not Detected (Not Detect); Parainfluenza Virus 1 Not Detected (Not Detect); Parainfluenza Virus 2 Not Detected (Not Detect); Parainfluenza Virus 3 Not Detected (Not Detect); Parainfluenza Virus 4 Not Detected (Not Detect); Respiratory Syncytial Virus Not Detected (Not Detect); SARS-CoV-2 Not Detected (Not Detect)
[2019-11-01] MEDS ORDERED: *HR* Promethazine 25 MG/ML VIAL IVP PRN (06:20)
[2019-11-01] MEDS ORDERED: Acetaminophen 325 MG TABLET PO PRN (06:20)
[2019-11-01] MEDS ORDERED: Naloxone 0.4 MG/ML INJ IVP PRN (06:20)
[2019-11-01] MEDS ORDERED: D5% in Water 1,000 ML IVC PRN (06:24)
[2019-11-01] MEDS ORDERED: *HR* Dextrose 50 % in Water (Vial) 50 ML VIAL IVP PRN (06:24)
[2019-11-01] MEDS ORDERED: Dextrose Gel 15 GM/37.5 ML TUBE PO PRN ×2 (06:24)
[2019-11-01] MEDS ORDERED: Ipratropium/Albuterol Neb 3 ML IH PRN (06:25)
[2019-11-01] MEDS ORDERED: 0.9 % Sodium Chloride 1,000 ML IVC SCH (06:30)
[2019-11-01 07:08] LABS: Thyroid Stimulating Hormone 0.648 mcIU/mL (0.340-5.600)
[2019-11-01] MEDS: Insulin LISPRO 300 UNITS/3 ML VIAL SQ SCH ×5 (08:04→23:01)
[2019-11-01 08:41] LABS: Estimated Average Glucose 183 mg/dl
[2019-11-01] MEDS ORDERED: *HR* Warfarin 5 MG TABLET PO ONE (18:00)
[2019-11-01] MEDS ORDERED: Warfarin perPT PO PRN (18:00)
[2019-11-02 04:22] LABS: Acinetobacter baumannii by PCR Not Detected (Not Detect); Candida albicans by PCR Not Detected (Not Detect); Candida glabrata by PCR Not Detected (Not Detect); Candida krusei by PCR Not Detected (Not Detect); Candida parapsilosis by PCR Not Detected (Not Detect); Candida tropicalis by PCR Not Detected (Not Detect); Enterobacter cloacae Cmplx PCR Not Detected (Not Detect); Enterobacteriaceae by PCR Not Detected (Not Detect); Enterococcus by PCR Not Detected (Not Detect); Escherichia coli by PCR Not Detected (Not Detect); Klebsiella oxytoca by PCR Not Detected (Not Detect); Klebsiella pneumoniae by PCR Not Detected (Not Detect); Proteus by PCR Not Detected (Not Detect); Pseudomonas aeruginosa by PCR Not Detected (Not Detect); Serratia marcescens by PCR Not Detected (Not Detect); Staphylococcus aureus by PCR Not Detected (Not Detect); Staphylococcus by PCR DETECTED (Not Detect); Streptococcus agalactiae(B)PCR Not Detected (Not Detect); Streptococcus by PCR Not Detected (Not Detect); Streptococcus pneumoniae PCR Not Detected (Not Detect); Streptococcus pyogenes (A) PCR Not Detected (Not Detect); blaKPC Carbapenem-Resist Gene Not Detected (Not Detect); mecA Methicillin-Resist Gene DETECTED (Not Detect); vanA/B Vancomycin-Resist Genes Not Detected (Not Detect)
[2019-11-02 07:57] LABS: Hematocrit 37.2 % (35.3-44.9); Hemoglobin 11.2 g/dL (11.5-15.4); Mean Corpuscular HGB Conc 30.1 g/dL (31.6-35.5); Mean Corpuscular Hemoglobin 28.4 pg (28.0-33.3); Mean Corpuscular Volume 94.4 fL (83.0-100.0); Mean Platelet Volume 9.8 fL (9.4-12.4); Platelet Count 267 K/mcL (140-400); Red Blood Count 3.94 M/mcL (3.82-4.97); Red Cell Distribution Width 15.9 % (11.5-14.5); White Blood Count 9.7 K/mcL (4.3-11.1)
[2019-11-02 08:01] LABS: INR 1.7; Prothrombin Time 19.3 Seconds (9.4-12.1)
[2019-11-02 08:11] LABS: BUN/Creatinine Ratio 20 (6-26); Blood Urea Nitrogen 10 mg/dL (8-23); Calcium 8.6 mg/dL (8.6-10.3); Carbon Dioxide 26 mEq/L (23-29); Chloride 100 mEq/L (98-107); Glucose 137 mg/dL (70-105); Magnesium 1.5 mg/dL (1.6-2.6); Osmolality,Calculated 277 (280-300); Phosphorous 2.8 mg/dL (2.7-4.5); Potassium 3.8 mEq/L (3.5-5.1); Sodium 133 mEq/L (136-145); eGFR For African Americans > 60 (> 60); eGFR For Non-African Americans > 60 (> 60)
[2019-11-02] MEDS ORDERED: Ertapenem 1,000 MG in 0.9 % Sodium Chloride Mini Bag 100 ML IVPB SCH (09:00)
[2019-11-02] MEDS: Vancomycin 1,500 MG/265 ML IV.SOLN IVPB SCH ×2 (12:08→21:57)
[2019-11-02] MEDS: Insulin LISPRO 300 UNITS/3 ML VIAL SQ SCH ×4 (12:10→21:54)
[2019-11-02] MEDS ORDERED: polyethylene glycoL 3350 17 GM POWD.PACK PO PRN (13:33)
[2019-11-02] MEDS ORDERED: Sennosides/Docusate Sodium TABLET PO PRN (13:33)
[2019-11-02] MEDS: *HR* Digoxin 0.125 MG TABLET PO SCH (14:47)
[2019-11-02] MEDS: DilTIAZem CD (24hr) 120 MG CAP.ER.24H PO SCH ×2 (14:50→21:52)
[2019-11-02] MEDS: Nystatin POWDER 30 GM BOTTLE TP SCH ×2 (16:45→21:51)
[2019-11-02] MEDS ORDERED: *HR* Warfarin 5 MG TABLET PO ONE (18:00)
[2019-11-02] MEDS: Budesonide/Formoterol 80/4.5 1 PUFF INH IH SCH (20:02)
[2019-11-02] MEDS: Famotidine 20 MG TABLET PO SCH (21:52)
[2019-11-02] MEDS: Metoprolol XL (24 HR) Succ 25 MG TAB.ER.24H PO SCH (21:53)
[2019-11-02] MEDS: allopurinoL 100 MG TABLET PO SCH (21:53)
[2019-11-02] MEDS: Magnesium Oxide 400 MG TABLET PO SCH (21:53)
[2019-11-02] MEDS: Insulin DETEMIR 100 UNIT/ML X5UNITS SQ SCH (21:59)
[2019-11-03 06:57] LABS: Basophils # 0.1 K/mcL (0.0-0.2); Eosinophils # 0.4 K/mcL (0.0-0.6); Eosinophils % 5.1 %; Hematocrit 35.8 % (35.3-44.9); Lymphocytes # 1.5 K/mcL (0.6-4.6); Lymphocytes % 19.1 %; Mean Corpuscular HGB Conc 30.7 g/dL (31.6-35.5); Mean Corpuscular Hemoglobin 29.7 pg (28.0-33.3); Mean Corpuscular Volume 96.8 fL (83.0-100.0); Monocytes # 0.8 K/mcL (0.0-1.3); Monocytes % 9.3 %; Neutrophils # 5.2 K/mcL (1.6-8.9); Platelet Count 247 K/mcL (140-400); Red Cell Distribution Width 15.9 % (11.5-14.5); Segmented Neutrophils % 64.5 %; White Blood Count 8.1 K/mcL (4.3-11.1)
[2019-11-03 07:19] LABS: BUN/Creatinine Ratio 19 (6-26); Blood Urea Nitrogen 10 mg/dL (8-23); Calcium 8.4 mg/dL (8.6-10.3); Carbon Dioxide 26 mEq/L (23-29); Chloride 99 mEq/L (98-107); Glucose 143 mg/dL (70-105); Magnesium 1.4 mg/dL (1.6-2.6); Osmolality,Calculated 274 (280-300); Potassium 3.9 mEq/L (3.5-5.1); Sodium 131 mEq/L (136-145); eGFR For African Americans > 60 (> 60); eGFR For Non-African Americans > 60 (> 60)
[2019-11-03] MEDS: Budesonide/Formoterol 80/4.5 1 PUFF INH IH SCH ×2 (08:08→20:23)
[2019-11-03] MEDS: Insulin LISPRO 300 UNITS/3 ML VIAL SQ SCH ×4 (10:22→23:30)
[2019-11-03] MEDS: allopurinoL 100 MG TABLET PO SCH ×2 (10:25→23:26)
[2019-11-03] MEDS: Cholecalciferol (D-3) 1,000 UNIT (25MCG) TABLET PO SCH (10:25)
[2019-11-03] MEDS: cefTRIAXone 2,000 MG in Water for inj. (sterile) 20 ML IVP SCH (10:25)
[2019-11-03] MEDS: Metoprolol XL (24 HR) Succ 25 MG TAB.ER.24H PO SCH ×2 (10:26→23:22)
[2019-11-03] MEDS: DilTIAZem CD (24hr) 120 MG CAP.ER.24H PO SCH ×2 (10:26→23:22)
[2019-11-03] MEDS: *HR* Digoxin 0.125 MG TABLET PO SCH (10:26)
[2019-11-03] MEDS: Magnesium Oxide 400 MG TABLET PO SCH ×2 (10:26→23:26)
[2019-11-03] MEDS: Famotidine 20 MG TABLET PO SCH ×2 (10:26→23:27)
[2019-11-03] MEDS: Nystatin POWDER 30 GM BOTTLE TP SCH ×3 (10:41→23:39)
[2019-11-03] MEDS: Vancomycin 1,500 MG/265 ML IV.SOLN IVPB SCH (10:41)
[2019-11-03 14:58] LABS: INR 2.2; Prothrombin Time 24.6 Seconds (9.4-12.1)
[2019-11-03] MEDS ORDERED: *HR* Warfarin 5 MG TABLET PO ONE (18:00)
[2019-11-03] MEDS ORDERED: Vancomycin 1,250 MG/262.5 ML IV.SOLN IVPB SCH (22:00)
[2019-11-03] MEDS: Insulin DETEMIR 100 UNIT/ML X5UNITS SQ SCH (23:28)
[2019-11-04] MEDS: Vancomycin 1,500 MG/265 ML IV.SOLN IVPB SCH (00:30)
[2019-11-04 01:27] LABS: Basophils # 0.1 K/mcL (0.0-0.2); Basophils % 0.7 %; Eosinophils # 0.4 K/mcL (0.0-0.6); Hematocrit 34.3 % (35.3-44.9); Hemoglobin 10.7 g/dL (11.5-15.4); Immature Granulocytes % 0.8 % (0-4); Lymphocytes # 1.8 K/mcL (0.6-4.6); Lymphocytes % 18.7 %; Mean Corpuscular HGB Conc 31.2 g/dL (31.6-35.5); Mean Corpuscular Hemoglobin 29.2 pg (28.0-33.3); Mean Corpuscular Volume 93.7 fL (83.0-100.0); Mean Platelet Volume 10.2 fL (9.4-12.4); Monocytes # 0.8 K/mcL (0.0-1.3); Monocytes % 8.3 %; Neutrophils # 6.4 K/mcL (1.6-8.9); Nucleated Red Blood Cells 0.2 /100 WBC (0); Platelet Count 254 K/mcL (140-400); Red Blood Count 3.66 M/mcL (3.82-4.97); Red Cell Distribution Width 16.1 % (11.5-14.5); Segmented Neutrophils % 67.5 %; White Blood Count 9.5 K/mcL (4.3-11.1)
[2019-11-04 01:37] LABS: INR 2.6; Prothrombin Time 29.9 Seconds (9.4-12.1)
[2019-11-04 01:46] LABS: BUN/Creatinine Ratio 16 (6-26); Blood Urea Nitrogen 10 mg/dL (8-23); Calcium 8.1 mg/dL (8.6-10.3); Carbon Dioxide 26 mEq/L (23-29); Chloride 98 mEq/L (98-107); Glucose 173 mg/dL (70-105); Osmolality,Calculated 271 (280-300); Potassium 3.9 mEq/L (3.5-5.1); Sodium 129 mEq/L (136-145); eGFR For African Americans > 60 (> 60); eGFR For Non-African Americans > 60 (> 60)
[2019-11-04] MEDS: Budesonide/Formoterol 80/4.5 1 PUFF INH IH SCH ×2 (07:42→20:15)
[2019-11-04] MEDS: cefTRIAXone 2,000 MG in Water for inj. (sterile) 20 ML IVP SCH (09:04)
[2019-11-04] MEDS: Insulin LISPRO 300 UNITS/3 ML VIAL SQ SCH ×4 (09:05→21:58)
[2019-11-04] MEDS: Famotidine 20 MG TABLET PO SCH ×2 (09:05→21:49)
[2019-11-04] MEDS: *HR* Digoxin 0.125 MG TABLET PO SCH (09:06)
[2019-11-04] MEDS: Magnesium Oxide 400 MG TABLET PO SCH ×2 (09:06→21:49)
[2019-11-04] MEDS: Metoprolol XL (24 HR) Succ 25 MG TAB.ER.24H PO SCH ×2 (09:06→21:50)
[2019-11-04] MEDS: allopurinoL 100 MG TABLET PO SCH ×2 (09:06→21:49)
[2019-11-04] MEDS: Cholecalciferol (D-3) 1,000 UNIT (25MCG) TABLET PO SCH (09:06)
[2019-11-04] MEDS: Nystatin POWDER 30 GM BOTTLE TP SCH ×3 (09:07→21:50)
[2019-11-04] MEDS: DilTIAZem CD (24hr) 120 MG CAP.ER.24H PO SCH ×2 (09:08→21:50)
[2019-11-04] MEDS ORDERED: *HR* Warfarin 2.5 MG TABLET PO ONE (18:00)
[2019-11-04] MEDS: Insulin DETEMIR 100 UNIT/ML X5UNITS SQ SCH (21:58)
[2019-11-05 03:34] LABS: Basophils # 0.1 K/mcL (0.0-0.2); Basophils % 0.9 %; Eosinophils # 0.2 K/mcL (0.0-0.6); Eosinophils % 3.1 %; Hematocrit 34.2 % (35.3-44.9); Hemoglobin 10.4 g/dL (11.5-15.4); Immature Granulocytes % 0.9 % (0-4); Lymphocytes # 1.6 K/mcL (0.6-4.6); Lymphocytes % 19.9 %; Mean Corpuscular HGB Conc 30.4 g/dL (31.6-35.5); Mean Corpuscular Hemoglobin 29.1 pg (28.0-33.3); Mean Corpuscular Volume 95.8 fL (83.0-100.0); Mean Platelet Volume 10.1 fL (9.4-12.4); Monocytes # 0.7 K/mcL (0.0-1.3); Monocytes % 8.5 %; Neutrophils # 5.2 K/mcL (1.6-8.9); Platelet Count 239 K/mcL (140-400); Red Blood Count 3.57 M/mcL (3.82-4.97); Red Cell Distribution Width 16.2 % (11.5-14.5); Segmented Neutrophils % 66.7 %; White Blood Count 7.8 K/mcL (4.3-11.1)
[2019-11-05 03:35] LABS: INR 2.9; Prothrombin Time 32.7 Seconds (9.4-12.1)
[2019-11-05 03:53] LABS: BUN/Creatinine Ratio 17 (6-26); Blood Urea Nitrogen 9 mg/dL (8-23); Calcium 8.2 mg/dL (8.6-10.3); Carbon Dioxide 24 mEq/L (23-29); Chloride 102 mEq/L (98-107); Glucose 146 mg/dL (70-105); Osmolality,Calculated 279 (280-300); Potassium 3.9 mEq/L (3.5-5.1); Sodium 134 mEq/L (136-145); eGFR For African Americans > 60 (> 60); eGFR For Non-African Americans > 60 (> 60)
[2019-11-05] MEDS: Budesonide/Formoterol 80/4.5 1 PUFF INH IH SCH ×2 (07:42→21:10)
[2019-11-05] MEDS: Cholecalciferol (D-3) 1,000 UNIT (25MCG) TABLET PO SCH (08:37)
[2019-11-05] MEDS: *HR* Digoxin 0.125 MG TABLET PO SCH (08:42)
[2019-11-05] MEDS: Metoprolol XL (24 HR) Succ 25 MG TAB.ER.24H PO SCH ×2 (08:42→21:38)
[2019-11-05] MEDS: Magnesium Oxide 400 MG TABLET PO SCH ×2 (08:42→21:38)
[2019-11-05] MEDS: Famotidine 20 MG TABLET PO SCH ×2 (08:42→21:37)
[2019-11-05] MEDS: DilTIAZem CD (24hr) 120 MG CAP.ER.24H PO SCH ×2 (08:42→21:38)
[2019-11-05] MEDS: Insulin LISPRO 300 UNITS/3 ML VIAL SQ SCH ×4 (08:44→21:58)
[2019-11-05] MEDS: cefTRIAXone 2,000 MG in Water for inj. (sterile) 20 ML IVP SCH (08:58)
[2019-11-05] MEDS: allopurinoL 100 MG TABLET PO SCH ×2 (09:02→21:38)
[2019-11-05] MEDS: Nystatin POWDER 30 GM BOTTLE TP SCH ×2 (09:03→15:54)
[2019-11-05] MEDS: Insulin DETEMIR 100 UNIT/ML X5UNITS SQ SCH (21:44)
[2019-11-06] MEDS: Nystatin POWDER 30 GM BOTTLE TP SCH ×4 (01:36→20:31)
[2019-11-06] MEDS: Budesonide/Formoterol 80/4.5 1 PUFF INH IH SCH ×2 (07:34→22:04)
[2019-11-06] MEDS: Insulin LISPRO 300 UNITS/3 ML VIAL SQ SCH ×4 (09:29→20:33)
[2019-11-06] MEDS: Magnesium Oxide 400 MG TABLET PO SCH ×2 (09:30→20:32)
[2019-11-06] MEDS: Famotidine 20 MG TABLET PO SCH ×2 (09:30→20:31)
[2019-11-06] MEDS: *HR* Digoxin 0.125 MG TABLET PO SCH (09:30)
[2019-11-06] MEDS: cefTRIAXone 2,000 MG in Water for inj. (sterile) 20 ML IVP SCH (09:30)
[2019-11-06] MEDS: allopurinoL 100 MG TABLET PO SCH ×2 (09:30→20:32)
[2019-11-06] MEDS: Cholecalciferol (D-3) 1,000 UNIT (25MCG) TABLET PO SCH (09:30)
[2019-11-06] MEDS: DilTIAZem CD (24hr) 120 MG CAP.ER.24H PO SCH ×2 (09:30→20:31)
[2019-11-06] MEDS: Metoprolol XL (24 HR) Succ 25 MG TAB.ER.24H PO SCH ×2 (09:30→20:32)
[2019-11-06 10:38] LABS: INR 2.5
[2019-11-06] MEDS ORDERED: *HR* Warfarin 5 MG TABLET PO ONE (18:00)
[2019-11-06] MEDS: Insulin DETEMIR 100 UNIT/ML X5UNITS SQ SCH (20:35)
[2019-11-07 06:38] LABS: INR 2.4; Prothrombin Time 27.3 Seconds (9.4-12.1)
[2019-11-07] MEDS: Budesonide/Formoterol 80/4.5 1 PUFF INH IH SCH (07:44)
[2019-11-07] MEDS: cefTRIAXone 2,000 MG in Water for inj. (sterile) 20 ML IVP SCH (09:38)
[2019-11-07] MEDS: Nystatin POWDER 30 GM BOTTLE TP SCH ×2 (09:50→16:12)
[2019-11-07] MEDS: Cholecalciferol (D-3) 1,000 UNIT (25MCG) TABLET PO SCH (09:51)
[2019-11-07] MEDS: *HR* Digoxin 0.125 MG TABLET PO SCH (09:51)
[2019-11-07] MEDS: Magnesium Oxide 400 MG TABLET PO SCH (09:51)
[2019-11-07] MEDS: allopurinoL 100 MG TABLET PO SCH (09:51)
[2019-11-07] MEDS: Insulin LISPRO 300 UNITS/3 ML VIAL SQ SCH ×3 (09:51→17:17)
[2019-11-07] MEDS: DilTIAZem CD (24hr) 120 MG CAP.ER.24H PO SCH (09:51)
[2019-11-07] MEDS: Famotidine 20 MG TABLET PO SCH (09:52)
[2019-11-07] MEDS: Metoprolol XL (24 HR) Succ 25 MG TAB.ER.24H PO SCH (09:52)
[2019-11-07 14:26] VITALS: BP 118/62
[2019-11-07] MEDS ORDERED: *HR* Warfarin 5 MG TABLET PO ONE (18:00)
[2019-11-07] MEDS ORDERED: FLU Vac QV HD 20-21 (65YR+)/PF 0.7 ML SYRINGE IM ONE (18:30)
[2019-11-07] MEDS ORDERED: FLU Vac QV 20-21 (6Month+)/PF 0.5 ML SYRINGE IM ONE (18:37)
== END 2019-11-07 19:17 | DRG 698 ==
LOC: EMEROOARM 02:19 → 3ANU 02:19 → SUATTDRO 05:15 → 3ANU 05:51 → SUATTDRO 11-02 16:40
PROVIDERS: ADMIT Internal Medicine; ATTEND Internal Medicine